=== PATIENT | female | born 1995 | race Two or more races ===

== ENCOUNTER 2021-12-29 04:40 | Inpatient (IN) | payer OTHER ==
[2021-12-29] MEDS ORDERED: AMPICILLIN SODIUM 2 GM VIAL ONE (06:20)
[2021-12-29] MEDS: ELECTROLYTE-148 SOLN 1,000 ML IV SCH ×2 (06:45→12:00)
[2021-12-29] MEDS ORDERED: OXYTOCIN 20 UNITS in 0.9% NS 20 UNIT/1,000 ML INFUS.BAG IV ONE ×2 (07:31→18:13)
[2021-12-29 08:06] LABS: CALCIUM 9.4 mg/dL (8.5-10.1)
[2021-12-29 08:07] LABS: BLOOD UREA NITROGEN 11.5 mg/dL (7-18)
[2021-12-29 08:10] LABS: CREATININE 0.6 mg/dL (0.55-1.3)
[2021-12-29 08:18] LABS: INR 1.03 (0.83-1.09); PROTHROMBIN TIME (PATIENT) 11.9 SEC (9.7-13.0)
[2021-12-29 08:21] LABS: ACTIVATED PTT 27.1 SECONDS (25.2-36.5)
[2021-12-29 08:32] LABS: BASO % 0.2 % (0-2.0); HEMATOCRIT 40.7 % (32.4-45.2); HEMOGLOBIN 13.5 GM/dL (10.7-15.3); LYMPH % 8.3 % (8-40); MCH 29.3 pg (25.7-33.7); MCHC 33.2 g/dl (32.0-36.0); MEAN CELL VOLUME 88.1 fl (80-96); MEAN PLT VOLUME 7.9 fl (7.5-11.1); NEUT % 87.5 % (42.8-82.8); PLATELET COUNT 185 10^3/uL (134-434); RBC 4.62 M/mm3 (3.60-5.2); RDW 14.5 % (11.6-15.6); WHITE BLOOD COUNT 12.9 K/mm3 (4.0-10.0)
[2021-12-29] MEDS ORDERED: AMPICILLIN - 2 GM in SODIUM CHLORIDE 100 ML IVPB ONE (09:32)
[2021-12-29] MEDS ORDERED: AMPICILLIN SODIUM 1 GM VIAL ONE ×2 (09:40→14:23)
[2021-12-29 09:45] VITALS: BMI 30.7
[2021-12-29] MEDS: AMPICILLIN - 1 GM in SODIUM CHLORIDE 100 ML IVPB SCH ×4 (10:05→23:42)
[2021-12-29] MEDS ORDERED: OXYTOCIN 30 UNITS in 0.9% NS 30 UNIT/500 ML INFUS.BAG IVPB ONE (10:23)
[2021-12-29] MEDS ORDERED: AMPICILLIN - 1 GM in SODIUM CHLORIDE 100 ML IVPB SCH ×2 (10:45→13:45)
[2021-12-29] MEDS ORDERED: OXYTOCIN 30 UNITS in 0.9% NS 30 UNIT/500 ML INFUS.BAG IVPB SCH (10:45)
[2021-12-29] MEDS ORDERED: FENTANYL/BUPIVACAINE/NS/PF - PCEA - 50 ML DISP.SYRIN EP ONE (12:59)
[2021-12-29] MEDS ORDERED: NALOXONE HCL 0.4 MG/ML VIAL IVPUSH PRN (14:04)
[2021-12-29] MEDS ORDERED: FENTANYL/BUPIVACAINE/NS/PF - PCEA - 50 ML DISP.SYRIN EP SCH (14:15)
[2021-12-29] MEDS ORDERED: OXYTOCIN 10 UNITS/ML VIAL ONE (14:56)
[2021-12-29] MEDS ORDERED: PHENYLEPHRINE HCL 10 MG/1 ML SINGLE DOSE VIAL ONE (14:57)
[2021-12-29] MEDS ORDERED: LIDOCAINE HCL/EPINEPHRINE/PF 20 ML VIAL ONE (15:30)
[2021-12-29] MEDS ORDERED: ePHEDrine SULFATE 50 MG/1 ML AMPULE ONE (15:31)
[2021-12-29] MEDS ORDERED: KETAMINE HCL 500 MG/10 ML VIAL ONE (15:31)
[2021-12-29] MEDS ORDERED: DEXAMETHASONE SOD PHOSPHATE 4 MG/1 ML VIAL ONE (16:20)
[2021-12-29] MEDS ORDERED: ceFAZolin SODIUM 1 GM VIAL ONE (16:20)
[2021-12-29] MEDS ORDERED: ONDANSETRON 4 MG/2 ML VIAL ONE (16:20)
[2021-12-29] MEDS ORDERED: morphine SULFATE (PF) 1 MG/2 ML SYRINGE ONE (16:36)
[2021-12-29] MEDS ORDERED: morphine SULFATE/PF 1 MG/2 ML (2cc Syringe - QUVA) EP ONE (16:45)
[2021-12-29 16:51] LABS: CORD BASE EXCESS -2.9 mmol/L (0-2); CORD HCO3 22.8 mmHg (20-29); CORD pH 7.343 (7.14-7.44)
[2021-12-29 16:52] LABS: CORD BASE EXCESS -5.1 mmol/L (0-2); CORD HCO3 21.5 mmHg (20-29); CORD PCO2 45.8 mmHg (30-78); CORD pH 7.29 (7.14-7.44)
[2021-12-29] MEDS ORDERED: BENZOCAINE 28 GM HEMORRHOIDAL OINTMENT TP PRN (17:01)
[2021-12-29] MEDS ORDERED: WITCH HAZEL 50% (TUCKS) 40 PAD/JAR PAD TP PRN (17:01)
[2021-12-29] MEDS ORDERED: BENZOCAINE 20% 57 GM BOTTLE TP PRN (17:01)
[2021-12-29] MEDS ORDERED: ACETAMINOPHEN 325 MG TABLET (FP) PO PRN (17:01)
[2021-12-29] MEDS ORDERED: METHYLERGONOVINE MALEATE 0.2 MG/1 ML AMP IM PRN (17:01)
[2021-12-29] MEDS ORDERED: IBUPROFEN 800 MG/8 ML IJ IVPB PRN (17:01)
[2021-12-29] MEDS ORDERED: SENNOSIDES/DOCUSATE COMBO (SENNA PLUS) TABLET (UD) PO PRN (17:01)
[2021-12-29] MEDS ORDERED: OXYTOCIN 20 UNITS in 0.9% NS 20 UNIT/1,000 ML INFUS.BAG IV SCH (17:15)
[2021-12-29] MEDS ORDERED: ONDANSETRON 4 MG/2 ML VIAL IVPUSH PRN (17:48)
[2021-12-29] MEDS ORDERED: CITRIC ACID/SODIUM CITRATE 30 ML UNIT-DOSE CUP PO ONE (18:08)
[2021-12-29] MEDS: FERROUS SO4 325 MG TABLET (FP) PO SCH (21:43)
[2021-12-30] VITALS: RESP 18
[2021-12-30] MEDS ORDERED: oxyCODONE HCL 5 MG TABLET PO PRN ×2 (05:02)
[2021-12-30 10:07] LABS: BASO % 0.2 % (0-2.0); EOS % 0.1 % (0-4.5); HEMATOCRIT 35.7 % (32.4-45.2); HEMOGLOBIN 11.6 GM/dL (10.7-15.3); LYMPH % 10.4 % (8-40); MCH 28.4 pg (25.7-33.7); MCHC 32.5 g/dl (32.0-36.0); MEAN CELL VOLUME 87.3 fl (80-96); MEAN PLT VOLUME 7.7 fl (7.5-11.1); MONO % 7.3 % (3.8-10.2); PLATELET COUNT 226 10^3/uL (134-434); RBC 4.09 M/mm3 (3.60-5.2); RDW 14.8 % (11.6-15.6); WHITE BLOOD COUNT 18.9 K/mm3 (4.0-10.0)
[2021-12-30] MEDS: PRENATAL VITAMINS W/ FOLIC ACID TABLET (FP) PO SCH (10:20)
[2021-12-30] MEDS: FERROUS SO4 325 MG TABLET (FP) PO SCH ×2 (10:20→22:29)
[2021-12-30] MEDS ORDERED: BISACODYL 10 MG SUPP.RECT RC PRN (17:02)
[2021-12-30] MEDS: SIMETHICONE 80 MG TAB.CHEW (FP) PO PRN (20:14)
[2021-12-30] MEDS: IBUPROFEN 600 MG TABLET (FP) PO PRN (20:14)
[2021-12-31] MEDS: IBUPROFEN 600 MG TABLET (FP) PO PRN ×3 (06:33→21:24)
[2021-12-31] MEDS: SIMETHICONE 80 MG TAB.CHEW (FP) PO PRN ×2 (06:33→21:24)
[2021-12-31] MEDS: PRENATAL VITAMINS W/ FOLIC ACID TABLET (FP) PO SCH (09:57)
[2021-12-31] MEDS: FERROUS SO4 325 MG TABLET (FP) PO SCH ×2 (09:58→21:21)
[2022-01-01] MEDS: IBUPROFEN 600 MG TABLET (FP) PO PRN (09:00)
[2022-01-01] MEDS: SIMETHICONE 80 MG TAB.CHEW (FP) PO PRN (09:00)
[2022-01-01] MEDS: FERROUS SO4 325 MG TABLET (FP) PO SCH (09:55)
[2022-01-01] MEDS: PRENATAL VITAMINS W/ FOLIC ACID TABLET (FP) PO SCH (09:55)
[2022-01-01 10:17] VITALS: BP 115/76; PULSE 119; TEMP 99
[2022-01-01 13:30] LABS: BASO % 0.2 % (0-2.0); EOS % 0.9 % (0-4.5); HEMOGLOBIN 11.5 GM/dL (10.7-15.3); LYMPH % 9.4 % (8-40); MCH 28.3 pg (25.7-33.7); MEAN CELL VOLUME 88.2 fl (80-96); MEAN PLT VOLUME 7.4 fl (7.5-11.1); MONO % 5.9 % (3.8-10.2); NEUT % 83.6 % (42.8-82.8); PLATELET COUNT 260 10^3/uL (134-434); RBC 4.08 M/mm3 (3.60-5.2); RDW 14.6 % (11.6-15.6); WHITE BLOOD COUNT 17.4 K/mm3 (4.0-10.0)
== END 2022-01-01 12:40 | disposition home or self-care (01) | DRG 788 ==
LOC: JDEL 04:40 → JLDR 05:00 → J3W 18:30
PROVIDERS: ADMIT Obstetrics & Gynecology; ATTEND Obstetrics & Gynecology
PROC: 10D00Z1 Extraction of Products of Conception, Low, Open Approach (ICD-10-PCS; principal; 2021-12-29)
DX: O62.0 Primary inadequate contractions (principal); Z3A.39 39 weeks gestation of pregnancy; Z37.0 Single live birth
CPT/HCPCS: 36415; 36600; 80048; 82803; 85025; 85610; 85730; 86780; 86850; 86900; 86901; 88307-TC; C9803-CS; U0003; U0005